=== PATIENT | male | born 1985 | race Caucasian/White ===

== ENCOUNTER 2019-07-19 18:12 | Emergency (ER) | payer BC, SELFPAY ==
[2019-07-19 18:28] VITALS: BP 102/67; PULSE 57; RESP 16; TEMP 36.5; O2SAT 100
--- NOTE | 2019-07-19 18:52 | ED.EAR ---
HPI - Ear Problem General Chief complaint: Ear Stated complaint: left ear pain Time Seen by Provider: 07/19/19 18:40 Source: patient Mode of arrival: ambulatory Limitations: no limitations History of Present Illness HPI Narrative: Rivas Holden steve 34 yo male with no medical history who comes to the urgent care for stuffiness of right ear. Started this morning, denies pain or injury Related Data Home Medications Medication Instructions Recorded Confirmed No Home Medications 07/19/19 07/19/19 Allergies Allergy/AdvReac Type Severity Reaction Status Date / Time No Known Allergies Allergy Mild Verified 07/19/19 18:38 Review of Systems Review of Systems: Narrative: CONSTITUTIONAL: Denies fever, chills, sweats. EYES: Denies visual changes, redness, discharge. ENT: Denies rhinorrhea, congestion, sore throat, right ear stuffiness . CARDIOVASCULAR: Denies chest pain, palpitations, edema. RESPIRATORY: Denies dyspnea, wheezing, cough GASTROINTESTINAL: Denies abdominal pain, nausea, vomiting, diarrhea. GENITOURINARY: Denies dysuria, hematuria, abnormal discharge SKIN: Denies rash or itching. MUSCULOSKELETAL: Denies acute back pain, joint pain, or myalgia. NEUROLOGIC: Denies numbness, or focal weakness. PSYCHIATRIC: Denies anxiety or depression. [facility] Family History Family History Sibling Family history of thyroid disease Mother Family history of malignant neoplasm of cervix Family history of renal failure Other Family history of cardiovascular disease Social History Social History Smoking status: Current every day smoker Smokeless tobacco user: chewing tobacco Alcohol intake: current Comments At time of signature, I agree with nursing past medical, surgical, social and family history. There is no relevant family history pertinent to the presenting complaint. Exam Narrative: Exam Narrative: GENERAL: This is a well-nourished, well-developed patient, in no apparent distress. HEAD: normocephalic, atraumatic. EYES: Sclera clear/white. Vision is grossly intact. EARS: External ears normal, auditory canals clear on left and slight redness on right , TMs normal without perforation. Hearing grossly intact muffled on right NOSE: External nose normal with no obvious nasal discharge, nares without redness, no rhinorrhea. THROAT: Mucous membranes moist, posterior pharynx clear. NECK: Neck supple, non-tender without lymphadenopathy, CARDIOVASCULAR: Regular rate and rhythm without murmurs, gallops, or rubs. RESPIRATORY: Clear to auscultation. Breath sounds equal bilaterally. No wheezes, rales, or rhonchi. GASTROINTESTINAL: Abdomen soft, non-tender, SKIN: warm, intact with no suspicious lesions or rash, NEURO: awake, alert, and oriented to person, place and time. There were no obvious focal neurologic abnormalities. Steady gait EXTREMITIES: Normal range of motion. No edema.. BACK: Nontender without deformity . Course Course Emergency Course: Started on eardrops and cleared Vital Signs Vital signs: Vital Signs Temperature 97.7 F 07/19/19 18:28 Pulse Rate 57 L 07/19/19 18:28 Respiratory Rate 16 07/19/19 18:28 Blood Pressure 102/67 07/19/19 18:28 Pulse Oximetry 100 07/19/19 18:28 Temperature 97.7 F 07/19/19 18:28 Pulse Rate 57 L 07/19/19 18:28 Respiratory Rate 16 07/19/19 18:28 Blood Pressure 102/67 07/19/19 18:28 Pulse Oximetry 100 07/19/19 18:28 Medical Decision Making Differential Diagnosis Differential Diagnosis: Ear pain versus otitis versus ear injury Vital Signs Vital Signs: Vital Signs Temperature 97.7 F 07/19/19 18:28 Pulse Rate 57 L 07/19/19 18:28 Respiratory Rate 16 07/19/19 18:28 Blood Pressure 102/67 07/19/19 18:28 Pulse Oximetry 100 07/19/19 18:28 Temperature 97.7 F 07/19/19 18:28 Pulse Rate 57 L 07/19/19 18:28 Res
== END 2019-07-19 19:07 | disposition home or self-care (01) ==
PROVIDERS: Emergency Provider Nurse Practitioner
DX: H91.91 Unspecified hearing loss, right ear (principal); F17.220 Nicotine dependence, chewing tobacco, uncomplicated
CPT/HCPCS: 99213; G0463

== ENCOUNTER 2019-07-23 16:42 | Emergency (ER) | payer BC, SELFPAY ==
[2019-07-23 16:52] VITALS: BP 116/70; PULSE 77; RESP 18; TEMP 36.7; O2SAT 98
--- NOTE | 2019-07-23 17:03 | ED.EAR ---
HPI - Ear Problem General Chief complaint: Ear Stated complaint: left ear pain Time Seen by Provider: 07/23/19 17:04 Source: patient and RN notes reviewed Mode of arrival: ambulatory Limitations: no limitations History of Present Illness HPI Narrative: 34-year-old male presents with concern for left ear pain. Reports he was seen here last week and given eardrops that he has been using with no relief. He reports ringing in his ear, pain, decreased hearing. Denies any cold symptoms. Reports this morning he had vertigo. MD Complaint: ear pain and decreased hearing Location: left ear Duration: constant Related Data Allergies Allergy/AdvReac Type Severity Reaction Status Date / Time No Known Allergies Allergy Mild Verified 07/19/19 18:38 Review of Systems Review of Systems: Narrative: CONSTITUTIONAL: Denies malaise, chills, sweats, or fever. EYES: Denies visual changes, redness, or discharge. ENT: Denies rhinorrhea, congestion, sinus pain, and sore throat. Reports left otalgia, decreased hearing, tinnitus CARDIOVASCULAR: Denies chest pain, palpitations, or edema. RESPIRATORY: Denies cough or dyspnea. GASTROINTESTINAL: Denies abdominal pain, nausea, vomiting, diarrhea SKIN: Denies rash or itching. MUSCULOSKELETAL: Denies myalgia. NEUROLOGIC: Denies headache. Reports vertigo this morning All systems reviewed & are unremarkable except as noted in HPI and below PMFSH Social History Social History Smoking status: Current every day smoker Smokeless tobacco user: chewing tobacco Alcohol intake: current Comments At time of signature, agree with nursing past medical, surgical, social and family history. There is no relevant family history pertinent to the presenting complaint Exam Narrative: Exam Narrative: GENERAL: Well-appearing, well-nourished, and in no acute distress. HEAD: Normocephalic, atraumatic. EYES: PERRLA, conjunctivae clear, and EOMI. ENT: Nares clear, left turbinates edematous and erythematous, no discharge. Mucous membranes moist. TM pearly rendon with sharp light reflex in the right ear, dull reflex with effusion in the left; external auditory canals unremarkable, no erythema, no drainage, no tragal tenderness. Oropharynx not erythematous without lesions. Tonsils not enlarged and without exudate, no drooling, no hoarseness, no trismus. NECK: Supple. No lymphadenopathy CHEST: Clear to auscultation, breath sounds equal. No wheezing, rhonchi, rales, or stridor. No respiratory distress, speaks in full sentences. HEART: Regular rate and rhythm. No murmur heard. Normal peripheral pulses. SKIN: Warm, dry, no rash. NEURO: Alert and oriented x3. PSYCH: Normal mood and affect Course Course Emergency Course: Patient is aware of diagnosis, understands and agrees to treatment plan. Anticipatory guidance given. Patient agrees to follow-up as directed and is aware of reasons to seek care at the emergency department. Portions of this record may have been created with voice recognition software Vital Signs Vital signs: Vital Signs Temperature 98.0 F 07/23/19 16:52 Pulse Rate 77 07/23/19 16:52 Respiratory Rate 18 07/23/19 16:52 Blood Pressure 116/70 07/23/19 16:52 Pulse Oximetry 98 07/23/19 16:52 Temperature 98.0 F 07/23/19 16:52 Pulse Rate 77 07/23/19 16:52 Respiratory Rate 18 07/23/19 16:52 Blood Pressure 116/70 07/23/19 16:52 Pulse Oximetry 98 07/23/19 16:52 Reviewed. Medical Decision Making MDM Narrative Medical decision making narrative: Differential diagnosis considered: Strep pharyngitis, allergic rhinitis, upper respiratory tract infection, sinusitis, rhinosinusitis, nasopharyngitis. viral pharyngitis, otitis media, otitis externa, otitis effusion, viral syndrome, foreign body, cerumen impaction. Exam findings show no acute concerns or changes; patient is non-toxic appearing and is in no distress. Patient is appropriate for ou
== END 2019-07-23 17:18 | disposition home or self-care (01) ==
PROVIDERS: Emergency Provider Nurse Practitioner
DX: H92.02 Otalgia, left ear (principal)
CPT/HCPCS: 99213; G0463

== ENCOUNTER → 2019-08-30 15:20 | Outpatient (CLI) | payer BC, SELFPAY ==
--- NOTE | ~2019-08-30 | MR_ITS ---
EXAMINATION: MR brain IAC wo/w con EXAM DATE: 08/30/2019 17:02 INDICATION: Left ear hearing loss, symptoms 2 months, sudden onset. TECHNIQUE: Multi-sequential, multiplanar MR images of the brain, brainstem, internal auditory canals were obtained without contrast. Whole brain sagittal T1, axial diffusion, gradient echo (T2*), T1, T 2, FLAIR sequences obtained. High resolution coronal 3-D FIESTA, coronal T1 FSE, axial T1 FSPGR of t he internal auditory canals. Patient was then injected with 18 cc Multihance contrast intravenously. Postcontrast axial and coronal T1 weighted whole brain, axial and coronal high resolution T1 IAC seq uences obtained. There is no prior study for comparison. FINDINGS: No evidence of mastoid or middle ear opacification. The 7th/8th cranial nerve complexes a re symmetric, normal in course and caliber. No cerebellopontine angle masses. Posterior fossa unrem arkable. Cavum vergae, congenital finding. There are no areas of restricted diffusion to suggest acute infarct ion. There is no acute hemorrhage seen on the T2*, a hemosiderin sensitive sequence. No intraparenc hymal brain mass. The ventricles are normal in size. There are no extra-axial collections. Flow voi ds are seen in the cerebral arteries on the T2-weighted sequences consistent with their expected acevedo ncy. The orbits are unremarkable. Soft tissue is unremarkable. There are no areas of abnormal enh ancement on the postcontrast images. IMPRESSION: 1. Unremarkable brain MRI examination. Reviewed, dictated and finalized at location A. [facility]
[2019-08-30 16:08] LABS: Estimated Glomerular Filt Rate > 60
== END ==
PROVIDERS: Visit Provider Otolaryngology
DX: H91.21 Sudden idiopathic hearing loss, right ear (principal)
CPT/HCPCS: 36415; 70553; A9577